=== PATIENT | female | born 1970 | race Caucasian/White ===

== ENCOUNTER 2018-06-05 17:23 | Emergency (ER) | payer OTHER ==
[~2018-06-05] VITALS: Ht 162.6 cm; Wt 117.9 kg
[~2018-06-05 17:23] MED LIST: ABILIFY5 MG; CLONAZEPAM0.5 MG; CYMBALTA20 MG PO; EFFEXOR XR150 MG; FOLGARD TABLET1 EACH; HYZAAR 100/25 T1 TAB; NEURONTIN600 MG; NORFLEX100 MG PO; PRILOSEC OTC20 MG; PROZAC20 MG; SOMA250 MG; STRESS FORMULA1 EACH; VOLTAREN-XR100 MG
[2018-06-05] MEDS ORDERED: CIPRO500 MG (18:10)
[2018-06-05] MEDS ORDERED: PHENAZOPYRIDIN200 MG (18:10)
[2018-06-05] MEDS ORDERED: RANITIDINE HCL150 M1 (18:11)
[2018-06-05] MEDS ORDERED: VOLTAREN-XR100 MG (18:12)
[2018-06-05] MEDS ORDERED: SYNTHROID50 MCG (18:12)
[2018-06-05] MEDS ORDERED: BACTRIM DS TAB1 EACH PO (22:05)
== END 2018-06-05 22:19 | disposition home or self-care (01) ==
LOC: ER 17:23
DX: N39.0 Urinary tract infection, site not specified (principal); R10.31 Right lower quadrant pain

== ENCOUNTER 2019-03-20 15:42 | Emergency (ER) | payer OTHER ==
[~2019-03-20] VITALS: Ht 162.6 cm; Wt 117.9 kg
[~2019-03-20 15:42] MED LIST changes: +BACTRIM DS TAB1 EACH PO; +CIPRO500 MG; +PHENAZOPYRIDIN200 MG; +RANITIDINE HCL150 M1; +SYNTHROID50 MCG
== END 2019-03-20 20:33 | disposition home or self-care (01) ==
LOC: ER 15:42
DX: M94.0 Chondrocostal junction syndrome [Tietze] (principal); R51 Headache; R20.2 Paresthesia of skin